=== PATIENT | female | born 1945 | race Caucasian/White ===

== ENCOUNTER 2022-02-09 06:40 | Day surgery (SDC) | payer MEDICARE ==
[~2022-02-09] VITALS: Ht 167.6 cm; Wt 101.2 kg
[~2022-02-09 06:40] MED LIST: ATEN50TA2 PO; ATOR40TA75 PO; BACL10TA2 PO; CENT1TAB PO; CLOT1CRE56 TOP; CYCLOPENTOLATE 1% OPHTH SOLN 2ML BTL OD SCH; D-20TAB PO; DICL20GE TP; DSS100CA PO; FURO20TA2 PO; GABA-283 PO; LORA-754 PO; MELA10CA PO; NYAM10003 EX; OFLOXACIN 0.3 % (OCUFLOX) OPTH SOL 5ML OD SCH; OMEG10002 PO; OXYB5TAB10 PO; OXYC7.5T3 PO; PANT20TA6 PO; PROPARACAINE 0.5% OPHTH SOL 15ML OD ONE; SERT50TA29 PO; SUMA100T2 PO; TOPI100T9 PO; TROPICAMIDE 1% OPHTH SOLN 15ML OD SCH; ZOLO100T PO
[2022-02-09] MEDS ORDERED: CEFUROXIME 1MG/0.1ML INTRACAMERAL INJ As Ordered ONE (06:57)
[2022-02-09] MEDS ORDERED: LIDOCAINE 1% 1ML PF SYRINGE (OR EYE CASES) As Ordered ONE (06:57)
[2022-02-09] MEDS ORDERED: BSS IRR 500ML/OMIDRIA 4ML IRR BAG (OR ONLY) As Ordered ONE (06:57)
[2022-02-09] MEDS: PHENYLEPHRINE 2.5% OPHTH SOL 2ML OD SCH ×2 (07:21→07:23)
[2022-02-09] MEDS ORDERED: MIDAZOLAM INJ 2MG/2ML VIAL As Ordered ONE (08:06)
[2022-02-09 08:28] VITALS: BP 156/67
== END 2022-02-09 08:43 | disposition home or self-care (01) ==
LOC: M SDC 06:40
PROVIDERS: ATTEND Ophthalmology
DX: H25.11 Age-related nuclear cataract, right eye (principal); I10 Essential (primary) hypertension; R07.9 Chest pain, unspecified; E78.00 Pure hypercholesterolemia, unspecified; K44.9 Diaphragmatic hernia without obstruction or gangrene; K21.9 Gastro-esophageal reflux disease without esophagitis; M19.90 Unspecified osteoarthritis, unspecified site; F32.A Depression, unspecified; F41.9 Anxiety disorder, unspecified; Z87.891 Personal history of nicotine dependence; Z79.899 Other long term (current) drug therapy; Z79.891 Long term (current) use of opiate analgesic
CPT/HCPCS: 66984; J0697; J1097; V2632